=== PATIENT | male | born 1980 | race African-American/Black ===

== ENCOUNTER 2019-02-24 17:17 | Observation (INO) ==
[2019-02-24] MEDS ORDERED: ASPIRIN 325 MG TABLET PO STA ×2 (17:26→17:42)
[2019-02-24] MEDS ORDERED: ALUM/MAG/SIMETH/LIDO VISC 1:1 30 ML BOTTLE PO STA (17:42)
[2019-02-24] MEDS ORDERED: KETOROLAC 30 MG/1 ML VIAL IV STA (17:42)
[2019-02-24] MEDS ORDERED: ONDANSETRON 4 MG/2 ML VIAL IV STA (17:42)
[2019-02-24 18:45] LABS: Basophils % 0.7 % (0.0-0.8); Eosinophils # 0.1 10*3/uL (0.0-0.87); Eosinophils % 1.7 % (0.00-10.9); Hematocrit 43.7 VOL% (42.0-52.0); Hemoglobin 14.4 GM/DL (14.0-18.0); Immature Granulocytes % 0.2 %; Immature Granulocytes Absolute 0.01 #; Lymphocytes # 1.8 10*3/uL (1.4-4.0); Lymphocytes % 33.1 % (21.2-54.2); Mean Corpuscular Volume 92.8 FL (87-102); Mean Platelet Volume 10.1 FL (9.6-12.0); Monocytes % 9.7 % (1.7-12.7); Neutrophils % 54.6 % (38.7-73.9); Platelet Count 267 T/CUMM (130-400); Red Blood Count 4.71 MC/CUMM (3.8-5.5); Red Cell Distribution Width 12.7 % (9.3-17.3); White Blood Count 5.4 T/CUMM (4-12)
[2019-02-24 19:02] LABS: Albumin 3.9 G/DL (3.4-5.0); Bilirubin,Total 0.5 MG/DL (0.2-1.0); Calcium 8.8 MG/DL (8.5-10.1); Osmolality,Calculated 277.5 MOS/KG (273-304); Total Protein 7.2 G/DL (6.4-8.3)
[2019-02-24 19:04] LABS: Troponin I < 0.015 NG/ML (0.00-0.045)
[2019-02-24 19:12] LABS: Apearance,Urine CLEAR (Clear); Bilirubin,Urine Negative (Negative); Blood, Urine Negative (Negative); Glucose,Urine (UA) Negative (Negative); Ketones,Urine 5 mg/dL (Negative); Nitrite,Urine Negative (Negative); Protein,Urine Negative; RBC,Urine 4 /HPF (0-4); Squamous Epithelial Cell,Urine Occasional /HPF (0-10); Urine Color Yellow (Yellow); Urine Specific Gravity 1.026 (1.001-1.035); WBC,Urine <1 /HPF (0-6)
[2019-02-24] MEDS ORDERED: MORPHINE 4 MG/1 ML VIAL IV STA (19:16)
[2019-02-24 19:19] LABS: Barbiturates Screen,Urine Negative (Negative); Benzodiazepines Screen,Urine Negative (Negative); Cannabinoid Screen,Urine Negative (Negative); Opiate Screen,Urine Negative (Negative); Phencyclidine Screen,Urine Negative (Negative)
[2019-02-24] MEDS ORDERED: SODIUM CHLORIDE 0.9% 1,000 ML IV SCH (21:30)
[2019-02-25 05:15] LABS: Calcium 8.3 MG/DL (8.5-10.1); Osmolality,Calculated 286.8 MOS/KG (273-304); Risk Ratio 3.9; VLDL CHOLESTEROL 8.6 MG/DL
[2019-02-25] MEDS ORDERED: hydroCHLOROthiazide 25 MG TABLET PO SCH (09:00)
[2019-02-25] MEDS ORDERED: ASPIRIN 325 MG TABLET PO SCH (09:00)
[2019-02-25] MEDS ORDERED: ACETAMINOPHEN 325 MG TABLET PO PRN (10:44)
[2019-02-25] MEDS ORDERED: ASPIRIN EC 81 MG TABLET PO SCH (12:41)
[2019-02-25 16:23] VITALS: BP 116/70
== END 2019-02-25 17:44 | disposition home or self-care (01) ==
LOC: N.ED 17:17 → N.EDINP 17:17 → SUATTDRO 19:45 → N.2W 20:35
PROVIDERS: ADMIT Internal Medicine Cardiovascular Disease; ATTEND Internal Medicine